=== PATIENT | female | born 1940 | race Caucasian/White ===

== ENCOUNTER 2021-06-21 19:40 | Inpatient (IN) | payer MEDICARE, BC ==
[~2021-06-21] VITALS: Ht 162.6 cm; Wt 99.0 kg
[2021-06-21] MEDS ORDERED: diltiazem 5mg/ml 5ml inj. IV ONE (19:45)
[2021-06-21] MEDS ORDERED: normal saline 1000ML IV soln IVB ONE (19:45)
[2021-06-21 20:01] LABS: BASOPHILS # (AUTO) 0.1 X10'3 (0-0.2); BASOPHILS % (AUTO) 1.6 % (0-1); EOSINOPHILS # (AUTO) 0.2 X10'3 (0-0.9); EOSINOPHILS % (AUTO) 4.1 % (0-6); HEMOGLOBIN 12.5 g/dl (12.0-16.0); LYMPHOCYTES # (AUTO) 1.3 X10'3 (1.1-4.8); LYMPHOCYTES % (AUTO) 24.6 % (21-51); MEAN CORPUSCULAR HGB CONC 34.8 g/dL (33.0-36.5); MEAN CORPUSCULAR VOLUME 94.9 FL (78-98); MEAN PLATELET VOLUME 7.4 FL (7.4-10.4); MONOCYTES # (AUTO) 0.4 X10'3 (0-0.9); MONOCYTES % (AUTO) 8.4 % (2-12); NEUTROPHILS # (AUTO) 3.2 X10'3 (1.8-7.7); NEUTROPHILS % (AUTO) 61.3 % (42-75); PLATELET COUNT 206 X10'3 (140-440); RED BLOOD COUNT 3.79 X10'6 (4.20-5.60); RED CELL DISTRIBUTION WIDTH 12.8 % (11.5-14.5); WHITE BLOOD COUNT 5.2 X10'3 (4.5-11.0)
[2021-06-21 20:14] LABS: D-DIMER 0.44 MG/L FEU (0-0.50); PARTIAL THROMBOPLASTIN TIME 30 SECONDS (22-32)
[2021-06-21 20:18] LABS: ALANINE AMINOTRANSFERASE 53 U/L (12-78); ALBUMIN 3.5 G/DL (3.4-5.0); ALBUMIN/GLOBULIN RATIO 1.2 (1.1-1.5); ALKALINE PHOSPHATASE 131 IU/L (46-116); ANION GAP 8 (8-16); ASPARTATE AMINO TRANSFERASE 31 U/L (10-37); BILIRUBIN,TOTAL 0.7 MG/DL (0.1-1.0); BLOOD UREA NITROGEN 21 MG/DL (7-18); BUN/CREATININE RATIO 27.3 (6.6-38.0); CALCIUM 8.4 MG/DL (8.5-10.1); CHLORIDE 101 MMOL/L (99-107); CREATININE 0.77 MG/DL (0.40-0.90); GLUCOSE 154 MG/DL (70-104); POTASSIUM 3.2 MMOL/L (3.5-5.1); SODIUM 137 MMOL/L (135-145); TOTAL CARBON DIOXIDE 28.1 MMOL/L (24-32); TOTAL PROTEIN 6.5 G/DL (6.4-8.2); eGFR 72 ML/MIN
[2021-06-21 20:26] LABS: MAGNESIUM 1.8 MG/DL (1.5-2.4)
[2021-06-21] MEDS ORDERED: temazepam 15mg capsule PO PRN (21:00)
[2021-06-21] MEDS ORDERED: magnesium 2GM in 50ml NS 50 ML IV PRN (21:15)
[2021-06-21] MEDS ORDERED: potassium Cl 20 mEq SR tablet PO PRN (21:15)
[2021-06-21] MEDS ORDERED: potassium Cl 40MEQ/1/2NS 520ml 520 ML IV PRN ×2 (21:15)
[2021-06-21] MEDS ORDERED: morphine 2 MG/ML inj. syringe IV PRN (21:15)
[2021-06-21] MEDS ORDERED: ondansetron/PF 4mg/2ml inj IV PRN (21:15)
[2021-06-21] MEDS ORDERED: normal saline 1000ml 1,000 ML IV SCH (21:15)
[2021-06-21] MEDS ORDERED: magnesium Cl slow-release 64mg tablet PO PRN (21:15)
[2021-06-21] MEDS ORDERED: HYDROcodone/acetaminophen 5mg/325mg tablet PO PRN (21:15)
[2021-06-21] MEDS ORDERED: magnesium 4gm in 100ml NS 100 ML IV PRN (21:15)
[2021-06-21] MEDS ORDERED: acetaminophen 325mg tablet PO PRN ×2 (21:15)
[2021-06-21] MEDS ORDERED: mag hydrox/Alum hydrox/simeth 30ml oral suspension PO PRN (21:15)
[2021-06-21] MEDS ORDERED: diltiazem-NS 100mg/100ml 100 ML IV SCH (21:25)
--- NOTE | 2021-06-21 22:00 | NUR ---
PT ABLE TO AMBULATE TO BEDSIDE COMMODE WITH NO ASSIST, DENIES ANY SYMPTOMS AT PRESENT, DAUGHTER AT BEDSIDE
[2021-06-21 22:57] LABS: CLARITY,URINE CLEAR (Clear); COLOR,URINE YELLOW (Yellow); GLUCOSE, URINE NEGATIVE (Neg); KETONES,URINE NEGATIVE (Neg); NITRITES, URINE NEGATIVE (Neg); OCCULT BLOOD,URINE NEGATIVE (Neg); PROTEIN,URINE NEGATIVE (Neg); UA COLLECTION TYPE NON-SPECIFIED; UROBILINOGEN,URINE 0.2 E.U/dL (0.2-1.0)
[2021-06-21 23:02] LABS: LEUKOCYTE ESTERASE ,URINE MODERATE (Neg)
[2021-06-21 23:03] LABS: BACTERIA,URINE FEW /HPF (Neg); MUCUS STRANDS FEW /LPF (Neg); RBC,URINE 0-2 /HPF (0-2); SQUAMOUS EPITHELIAL CELL,UR MODERATE /LPF (FEW)
[2021-06-21 23:04] LABS: WBC CLUMPS,URINE MODERATE /HPF (NEGATIVE)
[2021-06-22 02:45] LABS: BASOPHILS % (AUTO) 0.9 % (0-1); EOSINOPHILS # (AUTO) 0.2 X10'3 (0-0.9); EOSINOPHILS % (AUTO) 4.6 % (0-6); HEMATOCRIT 34.1 % (35.0-45.0); HEMOGLOBIN 11.8 g/dl (12.0-16.0); LYMPHOCYTES # (AUTO) 1.4 X10'3 (1.1-4.8); LYMPHOCYTES % (AUTO) 30.3 % (21-51); MEAN CORPUSCULAR HEMOGLOBIN 33.1 PG (27.0-31.0); MEAN CORPUSCULAR HGB CONC 34.7 g/dL (33.0-36.5); MEAN CORPUSCULAR VOLUME 95.2 FL (78-98); MEAN PLATELET VOLUME 7.7 FL (7.4-10.4); MONOCYTES # (AUTO) 0.4 X10'3 (0-0.9); MONOCYTES % (AUTO) 9.1 % (2-12); NEUTROPHILS # (AUTO) 2.6 X10'3 (1.8-7.7); NEUTROPHILS % (AUTO) 55.1 % (42-75); PLATELET COUNT 188 X10'3 (140-440); RED BLOOD COUNT 3.58 X10'6 (4.20-5.60); RED CELL DISTRIBUTION WIDTH 12.9 % (11.5-14.5); WHITE BLOOD COUNT 4.7 X10'3 (4.5-11.0)
[2021-06-22 02:57] LABS: ALANINE AMINOTRANSFERASE 46 U/L (12-78); ALBUMIN 3.2 G/DL (3.4-5.0); ALBUMIN/GLOBULIN RATIO 1.1 (1.1-1.5); ALKALINE PHOSPHATASE 105 IU/L (46-116); ANION GAP 3 (8-16); ASPARTATE AMINO TRANSFERASE 25 U/L (10-37); BILIRUBIN,TOTAL 0.6 MG/DL (0.1-1.0); BLOOD UREA NITROGEN 16 MG/DL (7-18); BUN/CREATININE RATIO 23.9 (6.6-38.0); CALCIUM 8.1 MG/DL (8.5-10.1); CHLORIDE 106 MMOL/L (99-107); CREATININE 0.67 MG/DL (0.40-0.90); GLUCOSE 107 MG/DL (70-104); POTASSIUM 3.3 MMOL/L (3.5-5.1); SODIUM 140 MMOL/L (135-145); TOTAL CARBON DIOXIDE 30.6 MMOL/L (24-32); TOTAL PROTEIN 6.1 G/DL (6.4-8.2); eGFR 84 ML/MIN
[2021-06-22 03:00] LABS: CHOL/HDL RATIO 1.7 (0.00-4.99); CHOLESTEROL 118 MG/DL (0-200); HDL CHOLESTEROL 70 MG/DL (35-60); LDL CHOLESTEROL 41 MG/DL (50-100); TRIGLYCERIDES 28 MG/DL (20-135)
[2021-06-22] MEDS ORDERED: ROBCFL PO (07:56)
[2021-06-22] MEDS ORDERED: PROP325C5 PO (07:56)
[2021-06-22] MEDS ORDERED: CHLO25TA11 PO (07:56)
[2021-06-22] MEDS ORDERED: heparin, porcine 5000 units/ml vial SQ SCH (08:00)
[2021-06-22] MEDS: K and/or MAG REPLACEMENT MC SCH ×2 (08:00→20:00)
[2021-06-22] MEDS ORDERED: propafenone 150mg tablet PO SCH ×2 (08:10→20:00)
[2021-06-22] MEDS ORDERED: RYT225T PO (08:20)
[2021-06-22] MEDS ORDERED: ROSU10TA28 PO (08:22)
[2021-06-22] MEDS ORDERED: diltiazem 30mg tablet PO ONE (08:25)
--- NOTE | 2021-06-22 08:27 | NUR ---
dr michael at bedside, verbal to add carizem po and stop iv
[2021-06-22] MEDS: potassium Cl 20 mEq SR tablet PO PRN ×2 (08:40→15:05)
[2021-06-22] MEDS: furosemide 20 MG/2 ML vial IV SCH ×2 (08:40→20:00)
--- NOTE | 2021-06-22 10:26 | NUR ---
PT PLACED ON HOSPITAL BED.
--- NOTE | 2021-06-22 11:27 | NUR ---
CALLED PHARMACY ABOUT RHYTHMOL. STATED WILL SEND DOWN
[2021-06-22 14:00] VITALS: BP 95/66
[2021-06-22 15:00] VITALS: BP 107/60
[2021-06-22] MEDS: diltiazem 30mg tablet PO SCH ×2 (15:04→20:00)
--- NOTE | 2021-06-22 18:09 | NUR ---
Problems reprioritized. Patient report given, questions answered & plan of care reviewed with NILSON Herrera.
[2021-06-22] MEDS ORDERED: guaiFENesin/DM/phenylephrine syrup 120ml bottle PO PRN (18:45)
[2021-06-22 19:00] VITALS: BP 111/63
[2021-06-22] MEDS: propafenone 150mg tablet PO SCH (20:00)
[2021-06-22] MEDS: apixaban 5mg tablet PO SCH (20:00)
[2021-06-22] MEDS ORDERED: furosemide 20 MG/2 ML vial IV SCH (20:00)
[2021-06-22] MEDS ORDERED: atorvastatin 20mg tablet PO SCH (21:00)
[2021-06-22 23:00] VITALS: BP 95/74
[2021-06-23] MEDS: diltiazem 30mg tablet PO SCH (02:00)
[2021-06-23 06:00] VITALS: BP 99/57
--- NOTE | 2021-06-23 06:32 | NUR ---
Patient in room PCU 3012. I have received report from NILSON Herrera and had the opportunity to ask questions and assume patient care.
[2021-06-23 07:14] LABS: BASOPHILS % (AUTO) 0.9 % (0-1); EOSINOPHILS # (AUTO) 0.2 X10'3 (0-0.9); EOSINOPHILS % (AUTO) 5.6 % (0-6); HEMATOCRIT 34.1 % (35.0-45.0); HEMOGLOBIN 11.9 g/dl (12.0-16.0); LYMPHOCYTES % (AUTO) 24.4 % (21-51); MEAN CORPUSCULAR HEMOGLOBIN 32.9 PG (27.0-31.0); MEAN CORPUSCULAR HGB CONC 34.8 g/dL (33.0-36.5); MEAN CORPUSCULAR VOLUME 94.4 FL (78-98); MEAN PLATELET VOLUME 7.7 FL (7.4-10.4); MONOCYTES # (AUTO) 0.4 X10'3 (0-0.9); MONOCYTES % (AUTO) 9.3 % (2-12); NEUTROPHILS # (AUTO) 2.4 X10'3 (1.8-7.7); NEUTROPHILS % (AUTO) 59.8 % (42-75); PLATELET COUNT 182 X10'3 (140-440); RED BLOOD COUNT 3.61 X10'6 (4.20-5.60)
[2021-06-23] MEDS ORDERED: carVEDilol 3.125mg tablet PO SCH (07:33)
[2021-06-23 07:36] LABS: ALANINE AMINOTRANSFERASE 35 U/L (12-78); ALBUMIN 3.1 G/DL (3.4-5.0); ALBUMIN/GLOBULIN RATIO 1.2 (1.1-1.5); ALKALINE PHOSPHATASE 95 IU/L (46-116); ANION GAP 4 (8-16); ASPARTATE AMINO TRANSFERASE 19 U/L (10-37); BILIRUBIN,TOTAL 0.7 MG/DL (0.1-1.0); BLOOD UREA NITROGEN 18 MG/DL (7-18); BUN/CREATININE RATIO 28.1 (6.6-38.0); CALCIUM 8.5 MG/DL (8.5-10.1); CHLORIDE 106 MMOL/L (99-107); CREATININE 0.64 MG/DL (0.40-0.90); GLUCOSE 107 MG/DL (70-104); POTASSIUM 3.9 MMOL/L (3.5-5.1); SODIUM 141 MMOL/L (135-145); TOTAL CARBON DIOXIDE 31.1 MMOL/L (24-32); TOTAL PROTEIN 5.7 G/DL (6.4-8.2); eGFR 89 ML/MIN
[2021-06-23] MEDS ORDERED: lisinopril 2.5mg tablet PO SCH (08:00)
[2021-06-23] MEDS: K and/or MAG REPLACEMENT MC SCH (08:00)
[2021-06-23 08:34] VITALS: BP 115/55
[2021-06-23] MEDS: propafenone 150mg tablet PO SCH (08:36)
[2021-06-23] MEDS: apixaban 5mg tablet PO SCH (08:36)
[2021-06-23] MEDS: furosemide 20 MG/2 ML vial IV SCH (08:37)
[2021-06-23] MEDS ORDERED: COR3.125T PO (10:07)
[2021-06-23] MEDS ORDERED: FURO-150 PO (10:07)
[2021-06-23] MEDS ORDERED: LISI2.5T14 PO (10:07)
[2021-06-23] MEDS ORDERED: APIX5TAB3 PO (10:24)
[2021-06-23 11:00] VITALS: BP 92/62
--- NOTE | 2021-06-23 11:45 | NUR ---
Pt stable for D/C per MD orders. Pt stable for D/C. All D/C ppwk was reviewed with patient and patient verbalized understanding. PIV was removed and patient tolerated well. Tele box 3 was removed and handed to [facility]. New RX was faxed to [facility] and I called to confirm they have it. Pt feels stable for D/C and does not have any questions, comments, or concerns at this time. All personal belongings were sent with patient. Pt was wheeled down in W/C by nursing staff to private vehicle where family was waiting.
== END 2021-06-23 12:53 | disposition home or self-care (01) | DRG 291 ==
LOC: ER 19:41 → ED HOLD 21:20 → OBSVTOIN 21:20 → PCU 3S 06-22 14:05
PROVIDERS: ADMIT Internal Medicine; ATTEND Internal Medicine
DX: I11.0 Hypertensive heart disease with heart failure (principal); I50.43 Acute on chronic combined systolic (congestive) and diastolic (congestive) heart failure; I48.20 Chronic atrial fibrillation, unspecified; E78.5 Hyperlipidemia, unspecified; I42.9 Cardiomyopathy, unspecified; E87.6 Hypokalemia; H91.93 Unspecified hearing loss, bilateral; K58.9 Irritable bowel syndrome, unspecified; I27.20 Pulmonary hypertension, unspecified; I35.0 Nonrheumatic aortic (valve) stenosis; Z66 Do not resuscitate; Z79.01 Long term (current) use of anticoagulants; Z79.899 Other long term (current) drug therapy; Z80.0 Family history of malignant neoplasm of digestive organs; Z80.7 Family history of other malignant neoplasms of lymphoid, hematopoietic and related tissues; Z82.49 Family history of ischemic heart disease and other diseases of the circulatory system; Z90.710 Acquired absence of both cervix and uterus; Z88.0 Allergy status to penicillin; Z88.2 Allergy status to sulfonamides
CPT/HCPCS: 36415; 71045; 80053; 80061; 81001; 83735; 83880; 84443; 84484; 85025; 85379; 85610; 85730; 93005; 93306; 96361; 96374; 99285; G0378; J1644; J1940; J3490; J7030